=== PATIENT | female | born 1955 | race Caucasian/White ===

== ENCOUNTER → 2017-02-02 | Outpatient (CLI) | payer OTHER ==
[2017-02-02 16:37] LABS: HEMATOCRIT 39.4 % (37-47)
[2017-02-02 16:51] LABS: ALT/SGPT 31 U/L (12-78); AST/SGOT 21 U/L (15-37); BLOOD UREA NITROGEN 16 mg/dl (7-18); BUN/CREATININE RATIO 17.8 (10-20); CALCIUM 9.2 mg/dl (8.5-10.1); CARBON DIOXIDE 29 mmol/L (21-32); CHLORIDE 104 mmol/L (98-107); CREATININE 0.88 mg/dl (0.60-1.20); GLUCOSE 155 mg/dl (70-99); MAGNESIUM 1.7 mg/dl (1.8-2.4); SODIUM 138 mmol/L (136-145)
[2017-02-02 17:02] LABS: ALKALINE PHOSPHATASE 65 U/L (45-117)
[2017-02-02 17:24] LABS: RATIO 5.1 mcg/mg (0-30.0)
[2017-02-03 06:16] LABS: ESTIMATED AVERAGE GLUCOSE 192 mg/dl; HA1C FLAG Normal (Normal)
[2017-02-08 02:20] LABS: GLUTAMIC ACID DECARBOXYLASE-65 <5 IU/mL (<5); ISLET CELL AB NEGATIVE (NEGATIVE)
== END | disposition home or self-care (01) ==
LOC: C.LAB1850 14:37
PROVIDERS: ATTEND Internal Medicine Endocrinology, Diabetes & Metabolism
DX: E11.9 Type 2 diabetes mellitus without complications (principal)

== ENCOUNTER → 2017-06-15 | Outpatient (CLI) | payer OTHER ==
[2017-06-15 12:46] LABS: HEMOGLOBIN A1C 7.6 % (4.5-5.6)
== END | disposition home or self-care (01) ==
LOC: C.LAB1850 11:07
PROVIDERS: ATTEND Internal Medicine Endocrinology, Diabetes & Metabolism
DX: E10.65 Type 1 diabetes mellitus with hyperglycemia (principal)